=== PATIENT | male | born 2000 | race Caucasian/White ===

== ENCOUNTER 2023-03-05 07:50 | Emergency (ER) | payer MEDICAID, SELFPAY ==
[2023-03-05 07:51] VITALS: BP 133/83; PULSE 74; RESP 16; TEMP 36.6; O2SAT 100; BMI 19.8
[2023-03-05 08:00] VITALS: BP 128/89; PULSE 73; O2SAT 100
--- NOTE | 2023-03-05 08:11 | HMH.EDGENADL ---
Discharge Plan Disposition Patient Disposition: Home, Self-Care Prescriptions Prescriptions: New promethazine 12.5 mg suppository 12.5 mg DC TID PRN (Reason: nausea and vomiting) Qty: 12 0RF Rx Instructions: do not give 3rd daily dose after evening meal or within 4hr before bed ondansetron 4 mg tablet,disintegrating 4 mg PO Q6H PRN (Reason: nausea and vomiting) 5 Days Qty: 20 0RF Referrals Follow up/Referrals: Provider,Referral, MD [Primary Care Provider] - See instructions Activity Restrictions/Add. Instructions Additional Instructions/Restrictions: Please take your Zofran oral disintegrating tablets and if you are continuing to vomit you may secondarily use the promethazine suppository tablets in an effort to not have to return to the emergency department. Please stay well-hydrated with sodium and glucose containing fluids such as Gatorade or Powerade. Return with inability tolerate fluids by mouth or any worsening concerns. Clinical Impressions Clinical Impression: Acute viral syndrome, Pharyngitis, Nausea & vomiting Instructions Patient Instructions: DI for Diarrhea and Traveler's Diarrhea -- Adult, DI for Diarrhea and Traveler's Diarrhea -- Child, DI for Nausea -- Adult, DI for Nausea -- Child Discharge ED Provider: Jemal Valdes General Adult HPI General Chief complaint: Nausea/Vomiting/Diarrhea Stated complaint: Vomiting, sore throat Time Seen by Provider: 03/05/23 08:11 Mode of Arrival: Ambulatory Source of Information: Patient and Parent(s) Limitations: No Limitations Description of Symptoms (Recalled from ER Triage Doc. by RN): 23 yo M presents to ED with c.o vomitting this am, sore throat that began this morning. History of Present Illness HPI narrative: Patient is a 23-year-old male went to bed yesterday evening feeling fine woke up with mild sore throat and had nausea and vomiting 3 times. He is currently mildly nauseated no abdominal pain no fevers no diarrhea no other symptoms. He is previously healthy. Related Data Previous Rx's Medication Instructions Recorded ondansetron 4 mg disintegrating 4 mg PO Q6H PRN nausea and 03/05/23 tablet vomiting 5 days #20 tabs promethazine 12.5 mg rectal 12.5 mg DC TID PRN nausea and 03/05/23 suppository vomiting #12 ea Allergies Allergy/AdvReac Type Severity Reaction Status Date / Time shrimp Allergy Verified 03/05/23 08:17 [facility] Disclaimer: The information contained in this section may have been updated after the patient was seen, as this information can be updated by other users. Social History Smoking Status: Current every day smoker alcohol intake: never current occupational status: other Travel in the last 8 weeks: None ROS Obtained: Yes All systems reviewed & no additional complaints except as documented Physical Exam General General appearance: alert ENT ENT exam: Present normal oropharynx and other (No lymphadenopathy no asymmetric soft tissue swelling no exudates or trismus) Respiratory Respiratory exam: Present normal lung sounds bilaterally; Absent respiratory distress Cardiovascular Cardiovascular exam: Present other (Well-hydrated) Neurological Exam Neurological exam: Present alert and oriented X3 Medical Decision Making Rolly Inquiry Pt receiving controlled substance: No Vital Signs: 03/05/23 07:51 03/05/23 08:00 Temperature 97.9 F Temperature Source Oral Pulse Rate 73 Pulse Rate [Left] 74 Respiratory Rate 16 Blood Pressure 128/89 Blood Pressure [Right Arm] 133/83 Blood Pressure Mean 98 Blood Pressure Mean [Right Arm] 99 02 Sat by Pulse Oximetry 100 100 Lab Data Lab results reviewed: Yes I reviewed the patient's lab results. Lab Results 03/05/23 08:00: Group A Strep Rapid Negative Orders (Tests/Meds): ED MEDICATIONS Discontinued Medications Generic Name Dose Route Start Last Admin Trade Name Freq PRN Reason Stop Dose Admin Ondansetron HCl 4
[2023-03-05 08:45] LABS: Strep Scrn Group A (Rapid) Negative (Negative)
--- NOTE | 2023-03-05 08:52 | PC.NURSE ---
checked on pt no nothing needed, visitor laying in bed pt setting at bs
[2023-03-05 09:44] LABS: Microscopic, Urine URINE MICROSCOPIC (MICROSCOPIC)
[2023-03-05 10:07] VITALS: BP 120/85; PULSE 50; RESP 16; TEMP 36.7
[2023-03-05 10:36] LABS: Appearance,Urine CLEAR (Clear); Bilirubin,Urine Negative (Negative); Blood, Urine Negative (Negative); Color,Urine YELLOW (Yellow); Glucose,Urine (UA) Negative (Negative); Ketones,Urine Negative (Negative); Leukocyte Esterase,Urine Negative (Negative); Nitrate,Urine Negative (Negative); Protein,Urine Negative (Negative); Urobilinogen,Urine 0.2 EU/dl (0.2)
[2023-03-05 11:13] LABS: WBC,Urine Occasional #/hpf (0-3)
== END 2023-03-05 10:08 | disposition home or self-care (01) ==
PROVIDERS: Student in an Organized Health Care Education/Training Program; Emergency Provider Family Medicine
DX: R11.2 Nausea with vomiting, unspecified (principal); J02.9 Acute pharyngitis, unspecified; B34.9 Viral infection, unspecified; F17.200 Nicotine dependence, unspecified, uncomplicated
CPT/HCPCS: 81001; 87430; 99283; 99284

== ENCOUNTER 2023-04-15 11:44 | Emergency (ER) | payer MEDICAID, SELFPAY ==
[2023-04-15] VITALS (7 sets, daily range): BP systolic 117–137; BP diastolic 61–83; PULSE 61–80; RESP 17–20; TEMP 36.6–36.7; O2SAT 99–100; BMI 18.4
--- NOTE | 2023-04-15 12:26 | CT_ITS ---
PROCEDURE INFORMATION: Exam: CT Abdomen And Pelvis Without Contrast Exam date and time: 04/15/2023 1:06 PM Age: 23 years old Clinical indication: Abdominal pain; Additional info: Abd pain /vomiting, has appendix, luq rlq ttp TECHNIQUE: Imaging protocol: Computed tomography of the abdomen and pelvis without contrast. Radiation optimization: All CT scans at this facility use at least one of these dose optimization techniques: automated exposure control; mA and/or kV adjustment per patient size (includes targeted exams where dose is matched to clinical indication); or iterative reconstruction. REPORTING DATA: Count of CT and Cardiac NM exams in prior 12 months: This patient has received 0 known CTs and 0 known cardiac nuclear medicine studies in the 12 months prior to the current study. COMPARISON: No relevant prior studies available. FINDINGS: Limitations: Lack of contrast material limits sensitivity in evaluation for acute intra-abdominal pathology. Paucity of mesenteric fat limits sensitivity in CT evaluation for acute intra-abdominal pathology. Liver: Unremarkable. Gallbladder and bile ducts: Unremarkable. Pancreas: Unremarkable. Spleen: Unremarkable. Adrenal glands: Unremarkable. Kidneys and ureters: Unremarkable. Stomach and bowel: Unremarkable as visualized. Appendix: Appendix is visualized and is normal. Intraperitoneal space: No free fluid. No pneumoperitoneum. Vasculature: Unremarkable. Lymph nodes: Unremarkable. Urinary bladder: Unremarkable. Reproductive: Unremarkable. Bones/joints: No evidence of acute osseous abnormality. Soft tissues: Unremarkable. IMPRESSION: No acute findings in the abdomen or pelvis.
[2023-04-15 12:29] LABS: Microscopic, Urine URINE MICROSCOPIC (MICROSCOPIC)
--- NOTE | 2023-04-15 12:32 | PC.NURSE ---
rounded on pt nothing needed at this time, call light at bs
[2023-04-15 12:38] LABS: Chloride 102 mmol/L (98-107); Potassium 3.9 mmoL/L (3.5-5.1); Sodium 145 mmol/L (136-145)
[2023-04-15 12:40] LABS: Alanine Aminotransferase 19 U/L (12-78); Alkaline Phosphatase 63 U/L (38-126); Anion Gap 17.9 mEq/L (5-15); Aspartate Amino Transferase 34 U/L (17-59); Bilirubin,Total 0.4 mg/dl (0.2-1.3); Blood Urea Nitrogen 12 mg/dl (9-20); Carbon Dioxide 29 mmol/L (22.0-30.0); Creatinine Clearance Estimated 117 mL/min (50-200); Estimated Glomerular Filt Rate 122 ml/min (>60); GFR (African American) 148 ML/MIN (>60)
[2023-04-15 12:41] LABS: Albumin Level 5.2 g/dl (3.5-5.0); Albumin/Globulin Ratio 1.6 (1.1-1.8); Globulin 3.3 g/dL (1.3-3.2); Glucose 95 mg/dl (74-100); Lipase 57 U/L (23-300); Total Protein,Serum 8.5 g/dl (6.3-8.2)
[2023-04-15 12:43] LABS: Appearance,Urine CLEAR (Clear); Bilirubin,Urine Negative (Negative); Blood, Urine Negative (Negative); Color,Urine YELLOW (Yellow); Glucose,Urine (UA) Negative (Negative); Ketones,Urine Negative (Negative); Leukocyte Esterase,Urine Negative (Negative); Nitrate,Urine Negative (Negative); PH,Urine 7.5 (5.0-8.5); Protein,Urine Negative (Negative); Specific Gravity, Urine 1.015 (1.005-1.030); Urobilinogen,Urine 0.2 EU/dl (0.2)
[2023-04-15 12:44] LABS: Basophils % 0.6 % (0.1-2.0); Eosinophils # 0.1 K/mm3 (0.0-0.4); Eosinophils % 1.1 % (0.1-12.0); Hematocrit 45.2 % (42.0-52.0); Hemoglobin 14.7 g/dL (14.1-18.0); Lymphocytes # 1.9 K/mm3 (0.7-4.5); Lymphocytes % 29.6 % (10-50); Mean Corpuscular HGB Conc 32.4 g/dL (31.8-35.4); Mean Corpuscular Hemoglobin 29.2 pg (27.0-31.2); Mean Corpuscular Volume 90.2 fl (80-94); Mean Platelet Volume 8.5 fl (7.4-10.4); Monocytes # 0.4 K/mm3 (0.1-1.0); Monocytes % 5.9 % (1.7-9.3); Neutrophils % 62.7 % (37.0-80.0); Platelet Count 215 K/mm3 (142-424); Red Blood Count 5.02 M/mm3 (4.60-6.20); Red Cell Distribution Width 12.7 % (11.5-17.5); White Blood Count 6.4 K/mm3 (4.8-10.8)
[2023-04-15 12:47] LABS: Squamous Epithelial Cell,Urine Occasional #/hpf (0-5)
--- NOTE | 2023-04-15 13:02 | HMH.ITSTN ---
scan was ordered with contrast- Dr discussed with patient and we discussed at length with patient -- he refused IV contrast and elected to do scan without contrast -
--- NOTE | 2023-04-15 13:14 | PC.NURSE ---
pt back to room from ct
--- NOTE | 2023-04-15 13:20 | PC.NURSE ---
rounded on pt, family at bs, fluids refused at this time, pt states that he feels it running through his veins and he dont like it. MD and primary nurse aware
--- NOTE | 2023-04-15 13:23 | HMH.EDGENADL ---
Discharge Plan Disposition Patient Disposition: Home, Self-Care Condition: Good Prescriptions Prescriptions: New ondansetron 4 mg tablet,disintegrating 4 mg PO Q8H PRN (Reason: nausea and vomiting) 5 Days Qty: 15 0RF No Action promethazine 12.5 mg suppository 12.5 mg DE TID PRN (Reason: nausea and vomiting) Qty: 12 0RF Rx Instructions: do not give 3rd daily dose after evening meal or within 4hr before bed ondansetron 4 mg tablet,disintegrating 4 mg PO Q6H PRN (Reason: nausea and vomiting) 5 Days Qty: 20 0RF Referrals Follow up/Referrals: Provider,Referral, MD [Primary Care Provider] - See instructions Activity Restrictions/Add. Instructions Additional Instructions/Restrictions: Take the newly prescribed medication as directed. This will help control nausea and vomiting. Drink plenty of fluids. Follow-up with your primary care physician in 2 days for reassessment. Return to the emergency department with new or worsening symptoms. Clinical Impressions Clinical Impression: Nausea & vomiting Stand Alone Forms Stand Alone Forms: Work/School Release Instructions Patient Instructions: DI for Acute Abdominal Pain Discharge ED Provider: Heavenly Gallardo General Adult HPI General Chief complaint: Abdominal Pain Stated complaint: Rib pain w/ movement, vomiting Time Seen by Provider: 04/15/23 12:05 Mode of Arrival: Ambulatory Source of Information: Patient Limitations: No Limitations Description of Symptoms (Recalled from ER Triage Doc. by RN): 23 yo M presents to ED with c/o left sided abdominal pain. pt reports symptoms began approx 0830. pt reports n/v/d. History of Present Illness HPI narrative: This 23-year-old male presenting to the emergency department with left-sided abdominal pain that began approximately 4 hours prior to arrival. Patient states he has had 2 episodes of vomiting as well as an episode of diarrhea. Endorses nausea. Nonbloody, nonbilious vomiting, nonbloody diarrhea, no melena. Other ROS negative. Related Data Previous Rx's Medication Instructions Recorded ondansetron 4 mg disintegrating 4 mg PO Q6H PRN nausea and 03/05/23 tablet vomiting 5 days #20 tabs promethazine 12.5 mg rectal 12.5 mg DE TID PRN nausea and 03/05/23 suppository vomiting #12 ea ondansetron 4 mg disintegrating 4 mg PO Q8H PRN nausea and 04/15/23 tablet vomiting 5 days #15 tabs Allergies Allergy/AdvReac Type Severity Reaction Status Date / Time shrimp Allergy Verified 03/05/23 08:17 [facility] Disclaimer: The information contained in this section may have been updated after the patient was seen, as this information can be updated by other users. Social History (Updated 03/05/23 @ 09:45 by Nathalia Guerrero MD) Smoking Status: Current every day smoker alcohol intake: never current occupational status: other Travel in the last 8 weeks: None ROS Obtained: Yes Systems reviewed as appropriate & no additional complaints except as documented Constitutional Constitutional: Denies chills, Denies fever(s), Denies headache(s) and Denies weakness Eyes Eyes: Denies change in vision ENT Ears, Nose, Mouth, and Throat: Denies dizziness, Denies headache(s), Denies nasal congestion and Denies sore throat Cardiovascular Cardiovascular: Denies chest pain, Denies dyspnea and Denies leg edema Respiratory Respiratory: Denies cough and Denies dyspnea Gastrointestinal Gastrointestingal: Reports diarrhea, nausea and vomiting; Denies constipation, hematemesis, hematochezia or melena Genitourinary Male Genitourinary: Denies difficulty urinating Musculoskeletal Musculoskeletal: Denies arthralgias, Denies myalgias, Denies numbness and Denies tingling Integumentary/Breasts Skin/Breast: Denies change in pigmentation Neurologic Neurologic: Denies dizziness, Denies headache(s), Denies numbness, Denies tingling and Denies weakness Physical Exam General General appearance: alert and in no apparent distr
== END 2023-04-15 14:27 | disposition home or self-care (01) ==
PROVIDERS: Emergency Provider Emergency Medicine
DX: R10.9 Unspecified abdominal pain (principal); R07.81 Pleurodynia; R11.2 Nausea with vomiting, unspecified; F17.200 Nicotine dependence, unspecified, uncomplicated
CPT/HCPCS: 74176; 80053; 81001; 83690; 85025; 96374; 99285; J2405